=== PATIENT | female | born 1970 | race Caucasian/White ===

== ENCOUNTER 2018-05-23 18:12 | Emergency (ER) | payer MEDICAID ==
[2018-05-23] MEDS: METOCLOPRAMIDE 10 MG INJ IV (21:53)
[2018-05-23] MEDS: KETOROLAC 30 MG INJ IV (21:53)
[2018-05-23] MEDS: SOD CHLORIDE 0.9% 1,000 ML IV (21:53)
[2018-05-23] MEDS: DIPHENHYDRAMINE 50 MG INJ IV (21:54)
[2018-05-23 22:10] LABS: ADD MAN DIFF? NO
[2018-05-23 22:13] LABS: BASOPHIL # 0.1 10^3/ul (0.0-0.1); BASOPHILS % 0.6 % (0.0-2.0); EOSINOPHILS # 0.2 10^3/ul (0.0-0.5); EOSINOPHILS % 2.2 % (0.0-7.0); HEMATOCRIT 36.3 % (37.0-47.0); HEMOGLOBIN 11.3 g/dl (12.0-16.0); LYMPHOCYTES # 3.4 10^3/ul (0.8-2.9); LYMPHOCYTES % 42.7 % (15.0-51.0); MEAN CORPUSCULAR HGB CONC 31.1 g/dl (32.0-37.0); MEAN CORPUSCULAR VOLUME 73.8 fl (82.0-101.0); MEAN PLATELET VOLUME 9.6 fl (7.4-10.4); MONOCYTE # 0.7 10^3/ul (0.3-0.9); NEUTROPHIL # 3.6 10^3/ul (1.6-7.5); NEUTROPHILS % 45.3 % (39.0-77.0); PLATELET COUNT 303 10^3/UL (140-415); RED BLOOD COUNT 4.92 10^6/ul (4.20-5.40); RED CELL DISTRIBUTION WIDTH 16.2 % (11.5-14.5)
[2018-05-23 22:29] LABS: ANION GAP 11 (5-13); BLOOD UREA NITROGEN 17 mg/dl (7-20); CALCIUM 9.6 mg/dl (8.4-10.2); CARBON DIOXIDE 26 mmol/L (21-31); CHLORIDE 105 mmol/L (97-110); CREATININE 0.57 mg/dl (0.44-1.00); Estimated GFR > 60 mL/min (>60); GLUCOSE 130 mg/dl (70-220); POTASSIUM 4.3 mmol/L (3.5-5.1); SODIUM 142 mmol/L (135-144)
[2018-05-23 22:32] LABS: INR 0.96; PROTIME 12.9 Sec (11.9-14.9)
[2018-05-23 22:33] LABS: PARTIAL THROMBOPLASTIN TIME 29.2 Sec (23.0-35.0)
== END 2018-05-23 23:02 | disposition home or self-care (01) ==
LOC: FTE 18:12
DX: R51 Headache (principal)
CPT/HCPCS: 36415; 80048; 81025; 85025; 85610; 85730; 96374; 96375; 99284-25

== ENCOUNTER 2018-07-07 13:26 | Emergency (ER) | payer MEDICAID ==
[2018-07-07] MEDS: IBUPROFEN 800 MG TAB PO (14:17)
[2018-07-07 14:22] LABS: URINE BLOOD (Dip) POC 2+ (NEGATIVE); URINE GLUCOSE (Dip) POC Negative (NEGATIVE); URINE KETONES (Dip) POC Negative (NEGATIVE); URINE LEUKOCYTE EST (Dip) POC Negative (NEGATIVE); URINE NITRITE (Dip) POC Negative (NEGATIVE); URINE TOTAL PROTEIN POC 1+ (NEGATIVE)
[2018-07-07 14:22] LABS: URINE PH (Dip) POC 5.5 (5.0-8.5)
== END 2018-07-07 14:49 | disposition home or self-care (01) ==
LOC: FTE 13:26
DX: R51 Headache (principal)
CPT/HCPCS: 81003; 81025; 99283